=== PATIENT | female | born 1995 | race Caucasian/White ===

== ENCOUNTER 2020-09-15 22:03 | Inpatient (IN) | payer BC ==
[2020-09-15] MEDS ORDERED: Ampicillin 2 GM in Sodium Chloride 0.9% 100 ML IV ONE (22:45)
[2020-09-15] MEDS ORDERED: Sodium Chloride 0.9% 10 ML Syringe FLUSH PRN (22:45)
[2020-09-15] MEDS ORDERED: Lidocaine 1% 50 ML MDV INJECT ONE (22:45)
[2020-09-15] MEDS ORDERED: Lactated Ringers 1,000 ML IV SCH (22:45)
[2020-09-15] MEDS ORDERED: Nalbuphine 10 MG/1 ML Vial IVPUSH PRN (22:45)
[2020-09-15] MEDS ORDERED: Oxytocin/Lactated Ringers 10 UNIT/1,000 ML BAG IV SCH (22:45)
[2020-09-15] MEDS ORDERED: Ampicillin 2 GM AdvVial IV ONE (22:52)
[2020-09-15] MEDS ORDERED: Sodium Chloride 0.9% 100 ML ONE (22:53)
--- NOTE | 2020-09-16 01:35 | PCM.LDHP ---
L&D History of Present Illness - General Date of Service: 09/16/20 Admit Problem/Dx: Patient Status Order with Admit Dx/Problem 09/15/20 22:16 Patient Status [ADT] Routine 09/15/20 22:45 Patient Status [ADT] Routine Admission Diagnosis/Problem Admission Diagnosis/Problem Source of Information: Patient History Limitations: Reports: No Limitations - History of Present Illness Introduction:: Carolee Franz is a 24-year-old -0-0-1 female at 39 weeks 2 days (WAI 09/21/2020) by LMP consistent with an 11-week ultrasound who presented to labor and delivery with irregular contractions that were persistent throughout the day. They were getting stronger throughout the day. She was not timing the contractions and did not know how long they were lasting. They were getting more painful and she was feeling pelvic pressure with the contractions. She denied any leaking of fluid or vaginal bleeding. She reports good movement. Timing/Duration: Reports: intermittent (Contractions throughout the evening that were getting stronger and more painful) Location, : Reports: Pelvic, Uterus Quality: Reports: Pressure, Throbbing Severity: Moderate Associated Symptoms: Denies: vaginal bleeding, vaginal discharge, vaginal fluid Present Illness Comments:: Carolee Franz is a 24-year-old -0-0-1 female at 39 weeks 2 days (WAI 09/21/2020) by LMP consistent with an 11-week ultrasound who presented to labor and delivery with advanced cervical dilation with cervix dilated to 7 cm on initial evaluation. She has had routine care with Dr. Rankin starting at 10 weeks gestational age. She declined the flu shot or Tdap during . She declined having glucose screening and was tested for hemoglobin A1c that was normal at 4.5%. Her was overall uncomplicated. She was diagnosed with GBS positive on swab. 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 G1: 09/29/2014, 38 weeks 3 days, , 8 pounds 8 ounces, male , hemorrhage G2: Current labs Blood type: A+ Antibody screen: Negative First trimester hematocrit/hemoglobin: 40.2%/13.1 on 02/28/2020 Platelets: 222 on 02/28/2020 Urine culture: Probable contaminant with Staphylococcus, no evidence of urinary tract infection Rubella status: Immune Hepatitis B surface antigen: Negative RPR: Negative HIV: Negative Gonorrhea: Negative Chlamydia: Negative Anatomy ultrasound: Normal anatomy, anterior and right-sided placenta, small vascular lakes, normal growth on 05/09/2020 One hour glucose tolerance test: Declined, normal hemoglobin A1c of 4.5% Second trimester hematocrit/hemoglobin: 39.3%/12.9 on 06/07/2020 Platelets: 207 on 06/07/2020 GBS status: Positive - Related Data Allergies/Adverse Reactions: Allergies Allergy/AdvReac Type Severity Reaction Status Date / Time No Known Allergies Allergy Verified 09/28/14 21:21 Home Medications: Home Meds Pnv with Ca,No.71/Iron/Fa [ Vitamin Tablet] 1 tab PO DAILY 09/28/14 [History] Past Medical History HEENT History: Reports: Other (See Below) Other HEENT History: Pt wears glasses Cardiovascular History: Reports: None Respiratory History: Reports: None Gastrointestinal History: Reports: None Genitourinary History: Reports: None FREIGHT UNLOADER History: Reports: None : 2 Para: 1 Musculoskeletal History: Reports: None Neurological History: Reports: None Psychiatric History: Reports: None Endocrine/Metabolic History: Reports: None Hematologic History: Reports: None Immunologic History: Reports: None Oncologic (Cancer) History: Reports: None Dermatologic History: Reports: None - Past Surgical History Head Surgeries/Procedures: Reports: None Social & Family History - Family History Family Medical History: No Pertinent Family History - Tobacco Use Tobacco Use Status *Q: Never Tobacco User Second Hand Smoke Exposure: No - Tobacco Core Measures Tobacco Use/Smoking Within Last 30 Days: No Smokeless Tobacco Use in Last 30 Days: No - Alcohol Use Alcohol Use History: No - Recreational Drug Use Recreational Drug Use: No - Living Situation & Occupation Living situation: Reports: Single, with Family Occupation: Employed H&P Review of Systems - Review of Systems: Review Of Systems: See Below General: Denies: Fever, Chills, Malaise, Weakness, Fatigue HEENT: Reports: Glasses. Denies: Rhinitis, Post Nasal Drip, Sinus Congestion, Sore Throat, Visual Changes Pulmonary: Denies: Shortness of Breath, Wheezing, Pleuritic Chest Pain, Cough Cardiovascular: Denies: Chest Pain, Palpitations, Dyspnea on Exertion, Orthopnea Gastrointestinal: Reports: Constipation (mild). Denies: Abdominal Pain, Diarrhea, Nausea, Vomiting Genitourinary: Denies: Dysuria, Frequency, Burning, Pain, Urgency Musculoskeletal: Denies: Back Pain Skin: Denies: Rash, Lesions Psychiatric: Denies: Depression, Anxiety L&D Exam - Exam Exam: See Below - Vital Signs Vital Signs: Last Vital Signs Temp 37.2 C 09/15/20 22:24 Pulse 86 09/15/20 22:24 Resp 16 09/15/20 22:24 BP 138/78 09/15/20 22:24 Pulse Ox 99 09/15/20 22:24 Weight: 78.16 kg - OB Specific Contraction Duration (sec): 60-75 Contraction Frequency (min): 2-3 Contraction Intensity: Strong Movement: Active Heart Tones: Present Heart Tones per Min: 120 (+15 x 15 accelerations, early decelerations) Heart Rate (FHR) Variability: Moderate (6-25 bmp) Presentation: Vertex - Gonzalez Score Gonzalez Score Cervix Position: Anterior Gonzalez Score Consistency: Soft Gonzalez Score Effacement: >80% (100%) Gonzalez Score Dilation: > 5 cm (10 cm) Gonzalez Score 's Station: +1, +2 (+2) Gonzalez Score Total: 13 - Exam General: Alert, Oriented, Moderate Distress HEENT: Conjunctiva Clear, EOMI Neck: Supple, Trachea Midline Lungs: Clear to Auscultation, Normal Respiratory Effort Cardiovascular: Regular Rate, Regular Rhythm GI/Abdominal Exam: Soft, Non-Tender, No Distention, Other (Gravid). No: Guarding, Rigid, Rebound Genitourinary: Normal external exam Extremities: Normal Inspection, No Pedal Edema Skin: Warm, Dry, Intact Psychiatric: Alert, Normal Affect, Normal Mood - Patient Data Lab Results Last 24 hrs: Laboratory Results - last 24 hr 09/15/20 09/15/20 Range/Units 22:55 23:19 WBC 10.03 (3.98-10.04) K/mm3 RBC 4.23 (3.98-5.22) M/mm3 Hgb 13.1 (11.2-15.7) gm/dl Hct 39.5 (34.1-44.9) % MCV 93.4 (79.4-94.8) fl MCH 31.0 (25.6-32.2) pg MCHC 33.2 (32.2-35.5) g/dl RDW Std Deviation 47.8 H (36.4-46.3) fL Plt Count 186 (182-369) K/mm3 MPV 11.1 (9.4-12.3) fl Neut % (Auto) 72.6 H (34.0-71.1) % Lymph % (Auto) 18.4 L (19.3-51.7) % [place] % (Auto) 8.5 (4.7-12.5) % Eos % (Auto) 0.3 L (0.7-5.8) Baso % (Auto) 0.1 (0.1-1.2) % Neut # (Auto) 7.28 H (1.56-6.13) K/mm3 Lymph # (Auto) 1.85 (1.18-3.74) K/mm3 [place] # (Auto) 0.85 H (0.24-0.36) K/mm3 Eos # (Auto) 0.03 L (0.04-0.36) K/mm3 Baso # (Auto) 0.01 (0.01-0.08) K/mm3 SARS-CoV-2 RNA (MARK) Negative (NEGATIVE) Result Diagrams: 09/15/20 22:55 - Problem List (1) 39 weeks gestation of SNOMED Code(s): 76955523 ICD Code: Z3A.39 - 39 WEEKS GESTATION OF Status: Acute Current Visit: Yes (2) GBS (group B Streptococcus carrier), +RV culture, currently SNOMED Code(s): 2925261919183, 060349899, 0083893332210 ICD Code: O99.820 - STREPTOCOCCUS B CARRIER STATE COMPLICATING Status: Acute Current Visit: Yes Problem List Initiated/Reviewed/Updated: Yes Orders Last 24hrs: Active Orders 24 hr Category Date Time Status Patient Status [ADT] Routine ADT 09/15/20 22:16 Active Patient Status [ADT] Routine ADT 09/15/20 22:45 Active Activity as Tolerated [RC] PFP Care 09/15/20 22:45 Active Communication Order [RC] ASDIRECTED Care 09/15/20 22:45 Active Heart Tones [RC] ASDIRECTED Care 09/15/20 22:46 Active Non Stress Test [RC] PER UNIT ROUTINE Care 09/15/20 22:45 Active Notify Provider [RC] PFP Care 09/15/20 22:45 Active Notify Provider [RC] PRN Care 09/15/20 22:45 Active Peripheral IV Care [RC] . DIRECTED Care 09/15/20 22:46 Active Vital Signs [RC] PER UNIT ROUTINE Care 09/15/20 22:16 Active Vital Signs [RC] PER UNIT ROUTINE Care 09/15/20 22:45 Active BLOOD BANK HOLD SPECIMEN [BBK] Stat Lab 09/15/20 22:45 Ordered RAPID PLASMA REAGIN,RPR [CHEM] Routine Lab 09/15/20 22:55 Received Ampicillin 1 gm Med 09/16/20 03:00 Active Sodium Chloride 0.9% [Normal Saline] 100 ml IV Q4H Lactated Ringers [Ringers, Lactated] 1,000 ml Med 09/15/20 22:45 Active IV ASDIRECTED Nalbuphine [Nubain] Med 09/15/20 22:45 Active 10 mg IVPUSH Q2H PRN Oxytocin/Lactated Ringers [Pitocin in LR 10 Units/1,000 Med 09/15/20 22:45 Active ML] 10 unit in 1,000 ml IV .CONTINUOUS Sodium Chloride 0.9% [Saline Flush] Med 09/15/20 22:45 Active 10 ml FLUSH ASDIRECTED PRN Electronic Heart Tones Ext w TOCO [WOMSER] Oth 09/15/20 22:45 Ordered Routine Electronic Heart Tones Internal [WOMSER] Per Unit Oth 09/15/20 22:45 Ordered Routine Peripheral IV Insertion Adult [OM.PC] Routine Oth 09/15/20 22:45 Ordered Resuscitation Status Routine Resus Stat 09/15/20 22:16 Ordered Medication Orders Lactated Ringer's (Ringers, Lactated) 1,000 mls @ 100 mls/hr IV ASDIRECTED SEFERINO Last Admin: 09/15/20 23:05 Dose: 100 mls/hr Documented by: STEPHANIE Ampicillin Sodium 1 gm/ Sodium (Chloride) 100 mls @ 200 mls/hr IV Q4H SEFERINO Oxytocin/Lactated Ringer's (Pitocin In Lr 10 Units/1,000 Ml) 10 unit in 1,000 mls @ 500 mls/hr IV .CONTINUOUS SEFERINO Nalbuphine HCl (Nubain) 10 mg IVPUSH Q2H PRN PRN Reason: Pain Sodium Chloride (Saline Flush) 10 ml FLUSH ASDIRECTED PRN PRN Reason: Keep Vein Open Assessment/Plan Comment:: Carolee Franz is a 24-year-old -0-0-1 female at 39 weeks 2 days (WAI 09/21/2020) by LMP consistent with an 11-week ultrasound who presented to labor and delivery with advanced cervical dilation and is GBS positive Refer to observation for spontaneous labor with cervical change Continuous monitoring Place IV and have Lactated Ringer's at 125 ml/hr May have small amounts of regular diet Activity as tolerated May have epidural as desired Plans to breast-feed after delivery Start on ampicillin 2 g now and have 1 g every 4 hours after for GBS prophylaxis Anticipate vaginal delivery unless otherwise indicated H&P information was collected prior to delivery. Patient progressed to pushing during my evaluation. H&P note entered after delivery. Yayo Rivera MD 1:41 AM 09/16/2020
[2020-09-16] MEDS: Lidocaine 1% 50 ML MDV ONE (01:43)
[2020-09-16] MEDS ORDERED: Oxytocin/Lactated Ringers 10 UNIT/1,000 ML BAG IV SCH (01:53)
[2020-09-16] MEDS ORDERED: Magnesium Hydroxide 400 MG/5 ML Susp 30 ML Cup PO PRN (01:53)
[2020-09-16] MEDS ORDERED: Docusate Sodium 100 MG Cap PO PRN (01:53)
[2020-09-16] MEDS ORDERED: Benzocaine/Menthol 20%-0.5% Spray 56 GM Canister TOP PRN (01:53)
[2020-09-16] MEDS ORDERED: Hydrocortisone Acetate 25 MG Supp RECTAL PRN (01:53)
[2020-09-16] MEDS ORDERED: Ibuprofen 600 MG Tab PO PRN (01:53)
[2020-09-16] MEDS ORDERED: Acetaminophen 325 MG Tab PO PRN (01:53)
[2020-09-16] MEDS ORDERED: Witch Hazel Medicated Pads 40/Jar TOP PRN (01:53)
--- NOTE | 2020-09-16 01:57 | PCM.DEL ---
L & D Note - General Info Date of Service: 09/16/20 Mother's Due Date: 09/21/20 - Delivery Note Labor: Spontaneous Delivery Outcome: Livebirth Infant Delivery Method: Spontaneous Vaginal Delivery-Single Presentation: Right Occiput Anterior (EVELINE) Nuchal Cord: None Anesthesia Type: None Amniotic Fluid Description: Clear Episiotomy Type: None Laceration: Periurethral (bilateral, small amount of bleeding, repaired with 4-0 Vicryl, hemostatic after repair) Suture type: Vicryl Suture size: 4-0 Placenta: Intact, Spontaneous Cord: 3 Vessels Estimated Blood Loss: 450 Resuscitation Needed: Yes [place]: Suctioned, Bulb Syringe, Stimulated, Warmed, [place] Used, Warmer Used Provider: Yayo Rivera Score 1 min: 8 Score 5 min: 9 Second Stage Interventions: Reports: Pushing, Stirrups/Leg Supports Delivery Comments (Free Text/Narrative):: Stage I: Carolee Franz was admitted for advanced cervical dilation and active labor. On admission her cervix was dilated to 7 cm. She was GBS positive and was started on ampicillin for GBS prophylaxis. She received 1 dose prior to delivery. She made progression over approximately 1.5 to 2 hours to complete. She began pushing. During pushing she was noted to have a bulging bag of water that was artificially ruptured with clear fluid. Stage II: On 09/16/2020 she had a normal vaginal delivery of a live male infant at 00:44. Apgars of 8 & 9. Weight of 3460 g (7 lbs 10.0 oz). Length of 21.0 inches. There was no nuchal cord. was delivered in EVELINE position. The cord was doubly clamped and cut by myself, Dr. Rivera. Infant was placed on mother's abdomen initially and then taken to the warmer for further resuscitation. Stage III: She had a spontaneous delivery of an intact placenta in [place] presentation. Three vessel cord. She was given pitocin and fundal massage. She had bilateral periurethral lacerations that were having small amount of continuous bleeding. These were repaired with 4-0 Vicryl. The lacerations were hemostatic after repair. Mom and baby were stable to recovery. EBL of 450 mL. Yayo Rivera MD 1:52 AM 09/16/2020 - General Info Date of Service: 09/16/20 - Patient Data Vitals - Most Recent: Last Vital Signs Temp 37.2 C 09/15/20 22:24 Pulse 86 09/15/20 22:24 Resp 16 09/15/20 22:24 BP 138/78 09/15/20 22:24 Pulse Ox 99 09/15/20 22:24 Weight - Most Recent: 78.16 kg I&O - Last 24 Hours: Intake & Output 09/15/20 09/15/20 09/16/20 14:59 22:59 06:59 Intake Total 100 Balance 100 Lab Results Last 24 Hours: Laboratory Results - last 24 hr 09/15/20 09/15/20 Range/Units 22:55 23:19 WBC 10.03 (3.98-10.04) K/mm3 RBC 4.23 (3.98-5.22) M/mm3 Hgb 13.1 (11.2-15.7) gm/dl Hct 39.5 (34.1-44.9) % MCV 93.4 (79.4-94.8) fl MCH 31.0 (25.6-32.2) pg MCHC 33.2 (32.2-35.5) g/dl RDW Std Deviation 47.8 H (36.4-46.3) fL Plt Count 186 (182-369) K/mm3 MPV 11.1 (9.4-12.3) fl Neut % (Auto) 72.6 H (34.0-71.1) % Lymph % (Auto) 18.4 L (19.3-51.7) % [place] % (Auto) 8.5 (4.7-12.5) % Eos % (Auto) 0.3 L (0.7-5.8) Baso % (Auto) 0.1 (0.1-1.2) % Neut # (Auto) 7.28 H (1.56-6.13) K/mm3 Lymph # (Auto) 1.85 (1.18-3.74) K/mm3 [place] # (Auto) 0.85 H (0.24-0.36) K/mm3 Eos # (Auto) 0.03 L (0.04-0.36) K/mm3 Baso # (Auto) 0.01 (0.01-0.08) K/mm3 SARS-CoV-2 RNA (MARK) Negative (NEGATIVE) Med Orders - Current: Current Medications Lactated Ringer's (Ringers, Lactated) 1,000 mls @ 100 mls/hr IV ASDIRECTED SEFERINO Last Admin: 09/15/20 23:05 Dose: 100 mls/hr Documented by: Ampicillin Sodium 1 gm/ Sodium (Chloride) 100 mls @ 200 mls/hr IV Q4H SEFERINO Oxytocin/Lactated Ringer's (Pitocin In Lr 10 Units/1,000 Ml) 10 unit in 1,000 mls @ 500 mls/hr IV .CONTINUOUS SEFERINO Last Admin: 09/16/20 01:00 Dose: 500 mls/hr Documented by: Nalbuphine HCl (Nubain) 10 mg IVPUSH Q2H PRN PRN Reason: Pain Sodium Chloride (Saline Flush) 10 ml FLUSH ASDIRECTED PRN PRN Reason: Keep Vein Open Discontinued Medications Ampicillin Sodium (Ampicillin) Confirm Administered Dose 4 gm IV .STK-MED ONE Stop: 09/15/20 22:53 Last Admin: 09/15/20 23:55 Dose: Not Given Documented by: Ampicillin Sodium 2 gm/ Sodium (Chloride) 100 mls @ 200 mls/hr IV ONETIME ONE Stop: 09/15/20 23:14 Last Admin: 09/15/20 23:06 Dose: 200 mls/hr Documented by: Sodium Chloride (Normal Saline) Confirm Administered Dose 100 mls @ as directed .ROUTE .STK-MED ONE Stop: 09/15/20 22:54 Last Admin: 09/15/20 23:55 Dose: Not Given Documented by: Lidocaine HCl (Xylocaine 1%) 10 ml INJECT ONETIME ONE Stop: 09/15/20 22:46 Last Admin: 09/16/20 01:42 Dose: 50 ml Documented by: Lidocaine HCl (Xylocaine 1%) Confirm Administered Dose 50 ml .ROUTE .STK-MED ONE Stop: 09/16/20 00:51 Last Admin: 09/16/20 01:43 Dose: Not Given Documented by: - Problem List & Annotations (1) 39 weeks gestation of SNOMED Code(s): 04213839 Code(s): Z3A.39 - 39 WEEKS GESTATION OF Status: Acute Current Visit: Yes (2) GBS (group B Streptococcus carrier), +RV culture, currently SNOMED Code(s): 2534087988311, 041811572, 1504179481527 Code(s): O99.820 - STREPTOCOCCUS B CARRIER STATE COMPLICATING Status: Acute Current Visit: Yes (3) Vaginal delivery SNOMED Code(s): 904509742 Code(s): O80 - ENCOUNTER FOR FULL-TERM UNCOMPLICATED DELIVERY Status: Acute Current Visit: Yes (4) Periurethral laceration, delivered, current hospitalization SNOMED Code(s): 305724712, 532126770 Code(s): O71.82 - OTHER SPECIFIED TRAUMA TO PERINEUM AND VULVA Status: Acute Current Visit: Yes - Problem List Review Problem List Initiated/Reviewed/Updated: Yes - My Orders Last 24 Hours: My Active Orders 09/15/20 22:16 Patient Status [ADT] Routine Vital Signs [RC] PER UNIT ROUTINE Resuscitation Status Routine 09/15/20 22:45 Patient Status [ADT] Routine Activity as Tolerated [RC] PFP Communication Order [RC] ASDIRECTED Non Stress Test [RC] PER UNIT ROUTINE Notify Provider [RC] PFP Notify Provider [RC] PRN Vital Signs [RC] PER UNIT ROUTINE BLOOD BANK HOLD SPECIMEN [BBK] Stat Lactated Ringers [Ringers, Lactated] 1,000 ml IV ASDIRECTED Nalbuphine [Nubain] 10 mg IVPUSH Q2H PRN Oxytocin/Lactated Ringers [Pitocin in LR 10 Units/1,000 ML] 10 unit in 1,000 ml IV .CONTINUOUS Sodium Chloride 0.9% [Saline Flush] 10 ml FLUSH ASDIRECTED PRN Electronic Heart Tones Ext w TOCO [WOMSER] Routine Electronic Heart Tones Internal [WOMSER] Per Unit Routine Peripheral IV Insertion Adult [OM.PC] Routine 09/15/20 22:46 Heart Tones [RC] ASDIRECTED Peripheral IV Care [RC] . DIRECTED 09/15/20 22:55 RAPID PLASMA REAGIN,RPR [CHEM] Routine 09/16/20 01:42 Patient Status Manage Transfer [TRANSFER] Routine 09/16/20 03:00 Ampicillin 1 gm Sodium Chloride 0.9% [Normal Saline] 100 ml IV Q4H - Plan Plan:: Carolee Franz is a 24-year-old now -0-0-2 female status post , PPD #0 complicated by GBS positive status and received 1 dose of ampicillin prior to delivery Admit to inpatient following normal spontaneous vaginal delivery Continue Pitocin per unit protocol following delivery of placenta and lactated Ringer's until tolerating regular diet Regular diet Vitals per unit routine Ibuprofen and Tylenol for pain control Assist with breast-feeding as needed Continue to monitor lochia Anticipate discharge home on day #2 due to receiving only 1 dose of ampicillin Yayo Rivera MD 1:52 AM 09/16/2020
[2020-09-16] MEDS ORDERED: Ampicillin 1 GM in Sodium Chloride 0.9% 100 ML IV SCH (03:00)
[2020-09-16] MEDS: Prenatal Multivitamin with Calcium/Folic Acid/Iron Tab PO SCH (13:06)
--- NOTE | 2020-09-17 08:13 | PCM.OPNOTE ---
- General Post-Op/Procedure Note Date of Surgery/Procedure: 09/17/20 Operative Procedure(s): Repeat lower uterine segment transverse section through Pfannenstiel skin incision under spinal block. Findings: Arvind scarring in the anterior abdominal wall. Baby in vertex presentation. Amniotic fluid had mild meconium staining. Uterine, tubal and ovarian anatomy was within normal limits for term . There is a female born at 0733 hrs 09/17/2020. Apgars of 9 and 9. Weight 2810 g (6 pounds 3 ounces.. Pre Op Diagnosis: 1. 39-2/7-week intrauterine . 2. History of previous section done for breech presentation, desiring repeat section. Post-Op Diagnosis: Same Anesthesia Technique: Spinal Other Anesthesia Type: Marcaine 0.5% - 20 cclocal Primary Surgeon: Sukumar Rankin Secondary Surgeon: Elizabeth Brady Anesthesia Provider: Karlo Stanford Reason [place] Was Necessary: Retraction, assistance, patient safety, quality of care Fluid Replacement, Intraop: 2,000 Output, Urine Amount: 150 EBL in mLs: 400 Drain/Tube Comments:: Indwelling bladder catheter Complications: None Condition: Good Free Text/Narrative:: Surgery duration: 34 minutes Surgery duration: Procedure: The patient is appropriately consented. Patient was transferred to the room and placed in a sitting position. Spinal anesthesia was administered. After confirmation of adequate anesthesia patient was placed in a supine position with a wedge under her right side to facilitate left lateral positioning. The patient was prepped and draped in usual fashion after Villatoro catheter was already placed . The anesthetic was checked and found to be adequate. 20 mL of Marcaine 0.5% was injected locally in the Pfannenstiel incision site. The Pfannenstiel skin incision was then made and carried down through skin, subcutaneous and fascial layers. The fascia was then undermined superiorly and inferiorly to allow for adequate operating room. The recti muscles midline and preperitoneal fat was bluntly dissected. Peritoneal cavity was entered longitudinally. The vesicouterine peritoneum was then incised transversely and bladder flap was developed. Myometrium was incised transversely to the level of the amniotic sac. This incision was extended bilaterally in a blunt fashion. The amniotic sac was then ruptured resulting in mild meconium stained amniotic fluid. A hand is placed in the low uterine segment and the baby's head was brought forth through the incision. The baby was completely delivered using fundal pressure in a routine fashion. The nose and mouth were bulb suctioned. Baby's cord was clamped x2 cut and baby was handed off to attending trouble lineman Dr Dempsey. Placenta was expressed after cord blood was obtained. Uterus was then exteriorized to allow for easier closure. The cervix was assessed and found to be dilated adequately to allow egress of blood. The uterus was closed in 2 layers. The first layer a running locked suture of 0 Monocryl, the second layer a running locked vertical mattress suture of 0 Monocryl. Hemostasis confirmed at this time. Sponge instrument needle counts are correct. The uterus was returned to the abdominal cavity and lateral gutters were cleared of blood. Once again sponge needle counts are correct. The anterior abdominal wall was closed with a #1 PDS suture from angle to angle. The subcutaneous area was found to be free of any bleeders. interrupted sutures of 3-0 Monocryl were used to reapproximate the subcutaneous layer.Skin was closed with a running subcuticular stitch of 3-0 Monocryl in a vertical mattress suture fashion using a Juan Luis needle. Prineo mesh/glue was then applied to further approximate the incision. It should be noted that patient received 2 g of Ancef preoperatively for infection prophylaxis and had Pitocin infused after delivery of the placenta to facilitate uterine contraction. She also had sequential compression stockings in place for DVT prophylaxis. Patient was discharged from the operating room in satisfactory condition.
--- NOTE | 2020-09-17 08:25 | PCM.SN.2 ---
- Free Text/Narrative Note: Post Progress Note PPD #1 Subjective: Doing well overall. Ambulating without difficulty. Lochia minimal. Voiding without difficulty. Tolerating regular diet without nausea or vomiting. Pain minimal and not requiring any medications for pain control. Breast-feeding with minimal difficulty. Objective: Vitals: Vital Signs - 24 hr 09/16/20 09/16/20 09/16/20 09:08 17:25 21:16 Temperature 36.3 C 36.6 C 36.7 C Pulse, 78 76 64 Peripheral Respiratory 15 14 16 Rate Blood Pressure 122/82 134/66 119/79 O2 Sat by Pulse 99 98 97 Oximetry 09/17/20 02:45 Temperature 36.0 C L Pulse, 62 Peripheral Respiratory 14 Rate Blood Pressure 122/64 O2 Sat by Pulse 99 Oximetry Physical Exam General: Alert and oriented, no acute distress Lungs: Clear to auscultation bilaterally Heart: Regular rate and rhythm Abdomen: Soft, minimal appropriate tenderness, non-distended, fundus midline, nontender, and at the umbilicus Extremities: No edema ASSESSMENT: 24-year-old female -0-0-2 s/p normal vaginal delivery PPD #1, complicated b y GBS positive status and received 1 dose of antibiotic prior to delivery PLAN: Doing well Breast-feeding with minimal difficulty. Assist as needed Lochia minimal. Continue to monitor for appropriate lochia. Continue routine care Anticipate discharge home tomorrow due to baby not being discharged today Yayo Rivera MD 8:24 AM 09/17/2020
[2020-09-18 10:33] VITALS: BP 133/84; PULSE 69
[2020-09-18] MEDS: Prenatal Multivitamin with Calcium/Folic Acid/Iron Tab PO SCH (10:51)
--- NOTE | 2020-09-18 10:57 | PCM.SN.2 ---
- Free Text/Narrative Note: Post Progress Note PPD #2 Subjective: Doing well overall. Ambulating without difficulty. Lochia minimal. Voiding without difficulty. Tolerating regular diet without nausea or vomiting. Pain minimal and not requiring any medications for pain control. Reports that she is having some mild to moderate cramping pain when she is sitting hunched over or breast-feeding. She states that this is overall tolerable. Breast-feeding with minimal difficulty. Objective: Vitals: Vital Signs - 24 hr 09/17/20 09/17/20 09/18/20 15:42 19:53 03:17 Temperature 36.6 C 37.0 C 36.6 C Pulse, 68 66 58 L Peripheral Respiratory 15 16 16 Rate Blood Pressure 131/84 120/89 122/76 O2 Sat by Pulse 96 95 98 Oximetry 09/18/20 09:32 Temperature 36.3 C Pulse, 69 Peripheral Respiratory 14 Rate Blood Pressure 133/84 O2 Sat by Pulse 98 Oximetry Physical Exam General: Alert and oriented, no acute distress Lungs: Clear to auscultation bilaterally Heart: Regular rate and rhythm Abdomen: Soft, minimal appropriate tenderness, non-distended, fundus midline, nontender, and 1 fingerbreadth below the umbilicus Extremities: No edema ASSESSMENT: 24-year-old female -0-0-2 s/p normal vaginal delivery PPD #2, complicated by GBS positive status and received 1 dose of antibiotic prior to delivery PLAN: Doing well Breast-feeding with minimal difficulty. Assist as needed Lochia minimal. Continue to monitor for appropriate lochia. Continue routine care Discharge home today Yayo Rivera MD 10:55 AM 09/18/2020
--- NOTE | 2020-09-18 11:02 | PCM.DCSUM1 ---
Discharge Summary - Hospital Course Free Text/Narrative:: - General Info Date of Service: 09/16/20 Mother's Due Date: 09/21/20 - Delivery Note Labor: Spontaneous Delivery Outcome: Livebirth Infant Delivery Method: Spontaneous Vaginal Delivery-Single Presentation: Right Occiput Anterior (EVELINE) Nuchal Cord: None Anesthesia Type: None Amniotic Fluid Description: Clear Episiotomy Type: None Laceration: Periurethral (bilateral, small amount of bleeding, repaired with 4-0 Vicryl, hemostatic after repair) Suture type: Vicryl Suture size: 4-0 Placenta: Intact, Spontaneous Cord: 3 Vessels Estimated Blood Loss: 450 Resuscitation Needed: Yes [place]: Suctioned, Bulb Syringe, Stimulated, Warmed, [place] Used, Warmer Used Provider: Yayo Rivera Score 1 min: 8 Score 5 min: 9 Second Stage Interventions: Reports: Pushing, Stirrups/Leg Supports Delivery Comments (Free Text/Narrative):: Stage I: Carolee Franz was admitted for advanced cervical dilation and active labor. On admission her cervix was dilated to 7 cm. She was GBS positive and was started on ampicillin for GBS prophylaxis. She received 1 dose prior to delivery. She made progression over approximately 1.5 to 2 hours to complete. She began pushing. During pushing she was noted to have a bulging bag of water that was artificially ruptured with clear fluid. Stage II: On 09/16/2020 she had a normal vaginal delivery of a live male at 00:44. Apgars of 8 & 9. Weight of 3460 g (7 lbs 10.0 oz). Length of 21.0 inches. There was no nuchal cord. was delivered in EVELINE position. The cord was doubly clamped and cut by myself, Dr. Rivera. Infant was placed on mother's abdomen initially and then taken to the warmer for further resuscitation. Stage III: She had a spontaneous delivery of an intact placenta in [place] presentation. Three vessel cord. She was given pitocin and fundal massage. She had bilateral periurethral lacerations that were having small amount of continuous bleeding. These were repaired with 4-0 Vicryl. The lacerations were hemostatic after repair. Mom and baby were stable to recovery. EBL of 450 mL. Diagnosis: Stroke: No - Discharge Data Discharge Date: 09/18/20 Discharge Disposition: Home, Self-Care 01 Condition: Good - Referral to Home Health Primary Care Physician: Sukumar Rankin MD - Discharge Diagnosis/Problem(s) (1) 39 weeks gestation of SNOMED Code(s): 76459267 ICD Code: Z3A.39 - 39 WEEKS GESTATION OF Status: Acute Current Visit: Yes (2) GBS (group B Streptococcus carrier), +RV culture, currently SNOMED Code(s): 8454267502729, 668006074, 2563148433838 ICD Code: O99.820 - STREPTOCOCCUS B CARRIER STATE COMPLICATING Status: Acute Current Visit: Yes (3) Vaginal delivery SNOMED Code(s): 471210728 ICD Code: O80 - ENCOUNTER FOR FULL-TERM UNCOMPLICATED DELIVERY Status: Acute Current Visit: Yes (4) Periurethral laceration, delivered, current hospitalization SNOMED Code(s): 623026580, 022256123 ICD Code: O71.82 - OTHER SPECIFIED TRAUMA TO PERINEUM AND VULVA Status: Acute Current Visit: Yes - Patient Summary/Data Complications: None Consults: None Hospital Course: Carolee Franz was admitted for advanced cervical dilation and active labor. On admission her cervix was dilated to 7 cm. She was GBS positive and was started on ampicillin for GBS prophylaxis. She received 1 dose prior to delivery.she made fast progression over approximately 1.5 to 2 hours to complete and began pushing. She had artificial rupture of membranes with clear fluid of her bulging bag of water that was noted during pushing. On 09/16/2020 she had a normal vaginal delivery of a live male infant at 00:44. Apgars of 8 and 9. Weight of 3460 g (7 pounds 10.0 ounces). Her course was uneventful. Her pain was well controlled and she had minimal lochia. She was ambulating, tolerating a regular diet and voiding normally. She was breast-feeding with minimal difficulty. She was afebrile and her hematocrit was 39.5 on admission. She desired to be discharged home on the morning of PPD #2. Her blood type is A+. - Patient Instructions Diet: Regular Diet as Tolerated Activity: Apply Ice, As Tolerated Activity, Other: Nothing in the vagina for 6 weeks Driving: May Drive Today Showering/Bathing: May Shower Notify Provider of: Fever, Increased Pain, Swelling and Redness, Drainage, Nausea and/or Vomiting Other/Special Instructions: Please contact your physician's office if you have heavy vaginal bleeding enough to soak a pad in less than an hour for several hours. Monitor for any signs of an infection in the breasts with severe pain or redness of the breast. - Discharge Plan *PRESCRIPTION DRUG MONITORING PROGRAM REVIEWED*: Not Applicable *COPY OF PRESCRIPTION DRUG MONITORING REPORT IN PATIENT MARY: Not Applicable Home Medications: Home Meds Pnv with Ca,No.71/Iron/Fa [ Vitamin Tablet] 1 tab PO DAILY 09/28/14 [History] Acetaminophen [Tylenol] 650 mg PO Q6H PRN tablet 09/18/20 [Rx] Benzocaine/Menthol [Dermoplast Pain Relief [place]] 1 spray TOP ASDIRECTED PRN canister 09/18/20 [Rx] Docusate Sodium [Colace] 100 mg PO BID PRN cap 09/18/20 [Rx] Hydrocortisone Acetate [Anucort-HC] 25 mg RECTAL BID PRN supp 09/18/20 [Rx] Ibuprofen [Motrin] 600 mg PO Q6H PRN tablet 09/18/20 [Rx] witch Corine [Tucks] 1 pad TOP ASDIRECTED PRN pad 09/18/20 [Rx] Patient Handouts: Care of a Perineal Tear, Care After Vaginal Delivery Referrals: Sukumar Rankin MD [Primary Care Provider] - (Follow-up in 2 weeks for routine visit or earlier as needed.) - Discharge Summary/Plan Comment DC Time >30 min.: No - Patient Data Vitals - Most Recent: Last Vital Signs Temp 36.3 C 09/18/20 09:32 Pulse 69 09/18/20 09:32 Resp 14 09/18/20 09:32 BP 133/84 09/18/20 09:32 Pulse Ox 98 09/18/20 09:32 Weight - Most Recent: 78.16 kg I&O - Last 24 hours: Intake & Output 09/17/20 09/18/20 09/18/20 22:59 06:59 14:59 Intake Total 360 Balance 360 Med Orders - Current: Current Medications Acetaminophen (Tylenol) 650 mg PO Q6H PRN PRN Reason: mild pain or fever Benzocaine/Menthol (Dermoplast Pain Relief [place]) 0 gm TOP ASDIRECTED PRN PRN Reason: Perineal Comfort Measure Last Admin: 09/16/20 03:00 Dose: 1 canister Documented by: Docusate Sodium (Colace) 100 mg PO BID PRN PRN Reason: Constipation Hydrocortisone Acetate (Anucort-Hc) 25 mg RECTAL BID PRN PRN Reason: Hemorrhoid pain Oxytocin/Lactated Ringer's (Pitocin In Lr 10 Units/1,000 Ml) 10 unit in 1,000 mls @ 100 mls/hr IV TITRATE SEFERINO; Protocol Ibuprofen (Motrin) 600 mg PO Q6H PRN PRN Reason: Mild pain or fever Magnesium Hydroxide (Milk Of Magnesia) 30 ml PO BEDTIME PRN PRN Reason: Constipation Prenat Multivit/[place]/Iron/Folic Ac ( Plus Iron) 1 each PO DAILY SEFERINO Last Admin: 09/18/20 10:51 Dose: Not Given Documented by: Brinda Castillo) 1 pad TOP ASDIRECTED PRN PRN Reason: Perineal Comfort Measure Last Admin: 09/16/20 03:00 Dose: 1 container Documented by: Discontinued Medications Ampicillin Sodium (Ampicillin) Confirm Administered Dose 4 gm IV .STK-MED ONE Stop: 09/15/20 22:53 Last Admin: 09/15/20 23:55 Dose: Not Given Documented by: Lactated Ringer's (Ringers, Lactated) 1,000 mls @ 100 mls/hr IV ASDIRECTED SEFERINO Last Admin: 09/15/20 23:05 Dose: 100 mls/hr Documented by: Ampicillin Sodium 2 gm/ Sodium (Chloride) 100 mls @ 200 mls/hr IV ONETIME ONE Stop: 09/15/20 23:14 Last Admin: 09/15/20 23:06 Dose: 200 mls/hr Documented by: Ampicillin Sodium 1 gm/ Sodium (Chloride) 100 mls @ 200 mls/hr IV Q4H SEFERINO Oxytocin/Lactated Ringer's (Pitocin In Lr 10 Units/1,000 Ml) 10 unit in 1,000 mls @ 500 mls/hr IV .CONTINUOUS SEFERINO Last Admin: 09/16/20 01:00 Dose: 500 mls/hr Documented by: Sodium Chloride (Normal Saline) Confirm Administered Dose 100 mls @ as directed .ROUTE .STK-MED ONE Stop: 09/15/20 22:54 Last Admin: 09/15/20 23:55 Dose: Not Given Documented by: Lidocaine HCl (Xylocaine 1%) 10 ml INJECT ONETIME ONE Stop: 09/15/20 22:46 Last Admin: 09/16/20 01:42 Dose: 50 ml Documented by: Lidocaine HCl (Xylocaine 1%) Confirm Administered Dose 50 ml .ROUTE .[facility] ONE Stop: 09/16/20 00:51 Last Admin: 09/16/20 01:43 Dose: Not Given Documented by: Nalbuphine HCl (Nubain) 10 mg IVPUSH Q2H PRN PRN Reason: Pain Sodium Chloride (Saline Flush) 10 ml FLUSH ASDIRECTED PRN PRN Reason: Keep Vein Open
== END 2020-09-18 15:02 | disposition home or self-care (01) | DRG 560 ==
LOC: JD.OBCHECK 22:03 → JD.OB 22:06 → JD.OBCHECK 22:44 → JD.OB 22:45 → OBSVTOIN 09-16 00:44 → JD.OB 09-16 00:45
PROVIDERS: ADMIT Obstetrics & Gynecology; ATTEND Obstetrics & Gynecology
PROC: 10E0XZZ Delivery of Products of Conception, External Approach (ICD-10-PCS; principal; 2020-09-16)
PROC: 10907ZC Drainage of Amniotic Fluid, Therapeutic from Products of Conception, Via Natural or Artificial Opening (ICD-10-PCS; 2020-09-16)
PROC: 0UQMXZZ Repair Vulva, External Approach (ICD-10-PCS; 2020-09-16)
DX: O99.824 Streptococcus B carrier state complicating childbirth (principal); Z20.822 Contact with and (suspected) exposure to COVID-19; O71.82 Other specified trauma to perineum and vulva; Z37.0 Single live birth; Z3A.39 39 weeks gestation of pregnancy; O76 Abnormality in fetal heart rate and rhythm complicating labor and delivery; Z79.899 Other long term (current) drug therapy
CPT/HCPCS: 36415; 59025; 59409; 85025; 86592; A9270-GY; J0290; J2001; J2590; J7120; U0002